=== PATIENT | female | born 1995 | race Hispanic/Latino ===

== ENCOUNTER 2018-01-20 16:12 | Emergency (ER) | payer MEDICAID, OTHER | END 2018-01-20 17:58 | disposition home or self-care (01) | LOC: EDH 16:12 | DX: F43.20 Adjustment disorder, unspecified (principal) ==

== ENCOUNTER 2018-09-13 14:00 | Emergency (ER) | payer MEDICAID | END 2018-09-13 16:27 | disposition home or self-care (01) | LOC: EDH 14:00 | DX: S89.92XA Unspecified injury of left lower leg, initial encounter (principal); R05 Cough; Z98.890 Other specified postprocedural states; Z72.0 Tobacco use; W18.39XA Other fall on same level, initial encounter; Y93.89 Activity, other specified; Y92.89 Other specified places as the place of occurrence of the external cause; Y99.8 Other external cause status | CPT/HCPCS: 29505; 73562; 73610 ==

== ENCOUNTER 2018-12-03 18:06 | Emergency (ER) | payer MEDICAID, OTHER ==
[2018-12-03] MEDS ORDERED: ACETAMINOPHEN EXTRA STRENGTH 500 MG TABLET ONE (18:21)
== END 2018-12-03 19:58 | disposition home or self-care (01) ==
LOC: EDH 18:06
DX: S83.8X2A Sprain of other specified parts of left knee, initial encounter (principal); F41.9 Anxiety disorder, unspecified; Z72.0 Tobacco use; W18.39XA Other fall on same level, initial encounter; Y93.01 Activity, walking, marching and hiking; Y92.89 Other specified places as the place of occurrence of the external cause; Y99.8 Other external cause status
CPT/HCPCS: 29505; 73562

== ENCOUNTER 2020-04-21 18:04 | Emergency (ER) | payer OTHER ==
[2020-04-21 18:36] LABS: APPEARANCE,URINE Cloudy (CLEAR); BILIRUBIN,URINE Negative (NEGATIVE); COLOR,URINE Yellow (YELLOW); GLUCOSE, URINE (UA) Negative (NEGATIVE); KETONES,URINE Negative (NEGATIVE); LEUKOCYTE ESTERASE ,URINE Large (NEGATIVE); NITRATE,URINE Negative (NEGATIVE); OCCULT BLOOD,URINE Negative (NEGATIVE); PROTEIN,URINE Negative (NEGATIVE)
[2020-04-21 18:38] LABS: HCG,QUAL RESULT NEGATIVE (NEGATIVE)
[2020-04-21 18:53] LABS: BACTERIA,URINE Moderate /HPF (None Seen); MUCUS,URINE Few LPF (None Seen); SQUAMOUS EPITHELIAL CELL,UR Moderate /HPF (0-2); TRICHOMONAS,URINE Moderate /LPF (None Seen)
== END 2020-04-21 20:45 | disposition left against medical advice (07) ==
LOC: EDH 18:04
DX: N93.8 Other specified abnormal uterine and vaginal bleeding (principal); N39.0 Urinary tract infection, site not specified; A59.9 Trichomoniasis, unspecified; F41.9 Anxiety disorder, unspecified; Z98.890 Other specified postprocedural states
CPT/HCPCS: 81001; 81025; 87077; 87088; 87186; 87486; 87797

== ENCOUNTER 2021-02-01 14:05 | Emergency (ER) | payer OTHER ==
[2021-02-01] MEDS ORDERED: ACETAMINOPHEN-CODEINE 300/30MG TAB ONE (14:24)
== END 2021-02-01 15:12 | disposition home or self-care (01) ==
LOC: EDH 14:05
DX: M54.5 Low back pain (principal); F41.9 Anxiety disorder, unspecified; Z98.890 Other specified postprocedural states
CPT/HCPCS: 72100

== ENCOUNTER 2024-10-22 11:37 | Emergency (ER) | payer SELFPAY ==
[~2024-10-22] VITALS: Ht 157.5 cm; Wt 83.0 kg
--- NOTE | 2024-10-22 11:57 | ERN ---
General Chief Complaint: Back Pain-No Injury Stated Complaint: BACK PAIN Time Seen by MD: 11:40 History of Present Illness Initial Comments Patient comes in with complaint of right low back pain for last three days. She woke up with it three days ago. The night before she had drank. However he does not recall any trauma and denies any falls. However she believes that she slept wrong afterwards. She woke up feeling pain in the right lower side without numbness. No dysuria. Last menses was about two and half weeks ago. It is worse with movement. She did take a medicine from [place] three days ago with some transient improvement. She has not taken any medicines today. Comes in for evaluation no no rash. No perineal symptoms. No radiation. No paresthesias. Allergies: Coded Allergies: No Known Allergies (Unverified Allergy, Unknown, 02/28/15) Home Meds No Active Prescriptions or Reported Meds Past Medical History Past Medical History: No Pertinent History Past Surgical History: ROS Dictation Ten systems reviewed and negative except as noted in HPI Physical Exam Physical Exam Dictation GEN: non toxic, NAD HEENT: atrumatic, PERRL, EOMI, conjunctivae normal NECK: Soft supple nontender Heart RRR, no murmurs Chest: No deformity Lungs: Lungs clear to auscultation Ab: Soft nondistended nontender Back: No midline step-offs. No gross deformity. No CVA tenderness : m/s: Moving all four extremities. No gross deformity. Reflexes 2+ at the knees and symmetric. Neuro: CN 2-12 intact. Moving all four extremities. Psych: Cooperative Results Laboratory and Microbiology Lab and Micro Result Laboratory Tests Test 10/22/24 11:45 Urine Color LIGHT-YELLOW (YELLOW) Urine Appearance CLOUDY (CLEAR) H Urine pH 6.0 (5.0-8.0) Urine Specific [place] 1.027 (1.001-1.031) Urine Protein 10 mg/dL (NEGATIVE) H Urine Glucose (UA) NEGATIVE mg/dL (NEGATIVE) Urine Ketones NEGATIVE mg/dL (NEGATIVE) Urine Occult Blood NEGATIVE (NEGATIVE) Urine Nitrate NEGATIVE (NEGATIVE) Urine Bilirubin NEGATIVE mg/dL (NEGATIVE) Urine Urobilinogen 0.2 mg/dL (0.2-1.0) Urine Leukocyte Esterase 250 Veronique/uL (NEGATIVE) H Urine RBC 6-10 /HPF (0-1) H Urine WBC 11-25 /HPF (0-1) H Urine Squamous Epithelial Cells MANY /HPF (0-2) Urine Bacteria RARE /HPF (None Seen) Urine Other Casts 1 /LPF (None Seen) Urine HCG, Qualitative NEGATIVE (NEGATIVE) MDM We will check urine and urine preg. However does appear to be musculoskeletal in nature. , year. We will treat symptomatically. No red carballo signs or symptoms. Urine is a bit contaminated. Patient has no urinary symptoms. Treat with Motrin and Flexeril ED Course Orders Procedure Category Date Status Time Urinalysis LAB 10/22/24 Complete W/Microscopic 11:53 ,Urine Test LAB 10/22/24 Complete 11:53 Acetaminophen 500mg PHA 10/22/24 Complete Tab (Tylenol 500mg T 12:00 Culture Urine NOY 10/22/24 In Process 12:16 Current Medications Medications (Trade) Dose Ordered Sig/Uvaldo Route PRN Reason Start Time Stop Time Status Last Admin Dose Admin Acetaminophen (TYLenol 500MG TAB) 1,000 mg ONCE ONCE PO 10/22/24 12:00 10/22/24 12:01 DC 10/22/24 12:50 Vital Signs Date Time Temp Pulse Resp B/P (MAP) Pulse Ox O2 Delivery O2 Flow Rate FiO2 10/22/24 12:43 97.3 76 18 126/60 99 Room Air* 0 21 10/22/24 11:45 98.1 95 16 129/74 98 Room Air* 0 21 10/22/24 11:38 98.1 95 16 129/74 98 Room Air 0 DX & DISP Disposition: Discharge Departure Impression: Primary Impression: Low back pain Condition: Stable Scripts Cyclobenzaprine HCl (Flexeril) 10 Mg Tab 1 TAB PO TID for muscle spasms for 7 Days, #21 TAB 0 Refills Prov: CHIRSTINE SUAREZ MD 10/22/24 Ibuprofen (Motrin/Advil) 600 Mg Tab 1 TAB PO TID for pain for 10 Days, #30 TAB 0 Refills with food Prov: CHRISTINE SUAREZ MD 10/22/24 Cyclobenzaprine HCl (Flexeril) 10 Mg Tab 10 TAB PO HS for muscle spasms for 7 Days, #21 TAB 0 Refills Prov: CHRISTINE SUAREZ MD 10/22/24 Referrals: SELF,REFERRAL (PCP) CHRISTINE SUAREZ MD Oct 22, 2024 11:57
[2024-10-22 12:13] LABS: HCG,QUALITATIVE URINE NEGATIVE (NEGATIVE)
[2024-10-22 12:14] LABS: APPEARANCE,URINE CLOUDY (CLEAR); BILIRUBIN,URINE NEGATIVE (NEGATIVE); COLOR,URINE LIGHT-YELLOW (YELLOW); GLUCOSE, URINE (UA) NEGATIVE (NEGATIVE); KETONES,URINE NEGATIVE (NEGATIVE); LEUKOCYTE ESTERASE ,URINE 250 Leu/uL (NEGATIVE); NITRATE,URINE NEGATIVE (NEGATIVE); OCCULT BLOOD,URINE NEGATIVE (NEGATIVE); PROTEIN,URINE 10 mg/dL (NEGATIVE); UROBILINOGEN,URINE 0.2 mg/dL (0.2-1.0)
[2024-10-22 12:17] LABS: BACTERIA,URINE RARE /HPF (None Seen); MUCUS,URINE RARE LPF (None Seen); OTHER CASTS, URINE 1 /LPF (None Seen); SQUAMOUS EPITHELIAL CELL,UR MANY /HPF (0-2)
[2024-10-22] MEDS: acetaMINOPHEN 500 MG TABLET PO ONE (12:50)
[2024-10-22] MEDS ORDERED: CYCL10TA16 PO ×2 (13:15)
[2024-10-22] MEDS ORDERED: IBUP-2088 PO (13:15)
[2024-10-22 13:19] VITALS: BP 124/63; PULSE 72; RESP 20; TEMP 97.1; O2SAT 97
== END 2024-10-22 13:24 | disposition home or self-care (01) ==
LOC: EDH 11:37
DX: M54.50 Low back pain, unspecified (principal); R10.31 Right lower quadrant pain
CPT/HCPCS: 81001; 81025; 87086; 99283

== ENCOUNTER 2024-12-08 12:08 | Emergency (ER) | payer SELFPAY ==
[~2024-12-08] VITALS: Ht 157.5 cm; Wt 81.6 kg
[~2024-12-08 12:08] MED LIST: CYCL10TA16 PO; IBUP-2088 PO
--- NOTE | 2024-12-08 12:56 | ERN ---
General Chief Complaint: Back Pain-No Injury Stated Complaint: BACK PAIN Time Seen by MD: 12:09 Source: patient History of Present Illness Initial Comments Patient is a 29-year-old female coming in with back pain. Patient does state that she has been having back pain for a couple of weeks was evaluated before but states she never got an x-ray so she was for further evaluation. No recent trauma. Allergies: Coded Allergies: No Known Allergies (Unverified Allergy, Unknown, 02/28/15) Home Meds Active Scripts Cyclobenzaprine HCl (Flexeril) 10 Mg Tab, 1 TAB PO TID for muscle spasms for 7 Days, #21 TAB 0 Refills Prov:CHRISTINE SUAREZ MD 10/22/24 Ibuprofen (Motrin/Advil) 600 Mg Tab, 1 TAB PO TID for pain for 10 Days, #30 TAB 0 Refills with food Prov:CHRISTINE SUAREZ MD 10/22/24 Cyclobenzaprine HCl (Flexeril) 10 Mg Tab, 10 TAB PO HS for muscle spasms for 7 Days, #21 TAB 0 Refills Prov:CHRISTINE SUAREZ MD 10/22/24 Past Medical History Past Medical History: No Pertinent History Past Surgical History: ROS Dictation CONSTITUTIONAL: No chills, no fever, no weakness, no diaphoresis, no malaise. HEAD/FACE: No signs of trauma. EENT: No eye pain, no blurred vision, no tearing, no double vision, no ear pain, no ear discharge, no nose pain, no nasal congestion, no throat pain, no throat swelling, no mouth pain. RESPIRATORY: No cough, no orthopnea, no SOB, no stridor, no wheezing. CARDIOVASCULAR: No chest pain, no edema, no palpitations, no syncope. GASTROINTESTINAL/ABDOMINAL: No abdominal pain, no constipation, no diarrhea, no nausea, no vomiting. GENITOURINARY: No abnormal discharge, no dysuria, no frequent urination, no hematuria. No complaints of pain in the genitals. MUSCULOSKELETAL: No back pain, no gout, no joint pain, no joint swelling, no muscle pain, no muscle stiffness, no neck pain. INTEGUMENTARY: No change in color, no change in hair/nails, no dryness, no lesion, no lumps, no rash. NEUROLOGICAL/PSYCH: No anxiety, not depressed, no emotional problem, no headache, no numbness, no pre-existing deficit, no history of seizures, no tremors, no weakness. HEMATOLOGIC/LYMPHATIC: Not anemic, no history of blood clots, no apparent bleeding, no bruising, glands not swollen. All Systems Negative, Except as Noted. Physical Exam Physical Exam Dictation VITAL SIGNS: Reviewed. GENERAL APPEARANCE: Alert, oriented x3, no acute distress, obese. HEAD AND FACE: Non-traumatic. EYES: PERRL, pink conjunctivas, eyelid no trauma, anterior chamber clear. EARS: Pinnas intact and no signs of trauma or erythema. Ear canals clear and no discharge. TMs no erythema. NOSE: No discharge, no bleeding. OROPHARYNX: Mouth normal, teeth no caries, tongue pink. Pharynx clear, no erythema. Tonsils no exudates, no abscesses noted. Mucous membrane moist. NECK: Supple, non-tender, no thyromegaly, no masses, no JVD, no bruits. BREAST: Deferred. CHEST: No tenderness, no crepitus, no paradoxical movement, no retractions. LUNGS: Clear, well-ventilated, symmetric, no rales, no wheezing, no rhonchi, no stridor, good breath sounds bilaterally. HEART: Regular rate, regular rhythm, no murmur, no gallops. VASCULAR: No peripheral edema. ABDOMEN: Soft, positive bowel sounds, nondistended, no guarding, nontender, no rebound, no masses no hepatomegaly, no splenomegaly, no Moses's sign, no hernias. RECTAL: Deferred. GENITAL: Deferred. NEUROLOGICAL: Normal speech, gross motor function intact, gross sensory function intact. MUSCULOSKELETAL: Neck nontender, full range of motion, back nontender, full range of motion. EXTREMITIES: Nontender, full range of motion. SKIN: Color pink, dry, no turgor, no rash, no lacerations, no abrasions, no contusions. LYMPHATICS: Deferred. Results Laboratory and Microbiology Lab and Micro Result Laboratory Tests Test 12/08/24 12:48 Urine HCG, Qualitative NEGATIVE (NEGATIVE) Urine Opiates Screen NEGATIVE (NEGATIVE) Urine Barbiturates Screen NEGATIVE (NEGATIVE) Urine Phencyclidine Screen NEGATIVE (NEGATIVE) Urine Amphetamines Screen NEGATIVE (NEGATIVE) Urine Benzodiazepines Screen POSITIVE (NEGATIVE) H Urine Cocaine Screen POSITIVE (NEGATIVE) H Urine Marijuana (THC) Screen POSITIVE (NEGATIVE) H Labs Reviewed?: Yes EKG/XRAY/US/CT/MRI X-RAY Comment [facility] [address] [place] [address] IMAGING REPORT Signed PATIENT: REYNA PADILLA MR#: [id number] : 1995 SEX: F AGE: 29 LOCATION: [facility] ORDER 1313 STATUS: REG ER REPORT#: [id number] SERVICE 1311 REASON: back pain ORDERING PHYSICIAN: DELMER TORRES MD PROCEDURE: LUMB 2 3VW - LUMBAR SPINE 2-3VWS LUMBAR SPINE RADIOGRAPHS - 2-3 VIEWS INDICATION: Back pain COMPARISON: None FINDINGS: AP, lateral, and coned-down lateral views. Normal lordotic curvature of the lumbar spine is maintained. Five nonrib-bearing lumbar vertebral bodies are noted. No acute fracture or subluxation identified. Vertebral body heights are well-maintained. Moderate disc height loss at the L5-S1 level.. IMPRESSION: No fracture or subluxation identified. DICTATED BY: BUDDY DAVIS MD DATE: 12/08/241412 ELECTRONICALLY SIGNED BY: BUDDY DAVIS MD DATE: 12/08/241415 [facility] MDM: Differential diagnosis: Back pain, osteoarthritis of the back, Patient is a 29-year-old female coming in to be evaluated for back pain. X-ray did not disclose acute findings. Based on physical findings patient has a right lower back radiating down the right gluteal regions suggestive of piriformis secondary to it is a sciatic nerve inflammation. Patient will be discharged in stable condition when I advised her appropriate follow up with PCP and learning specialist. ED Course Orders Procedure Category Date Status Time ,Urine Test LAB 12/08/24 Complete 12:22 Drug Screen Urine LAB 12/08/24 Complete 12:22 Orphenadrine Citrate PHA 12/08/24 Complete (Norflex) 13:30 Lumbar Spine 2-3vws RAD 12/08/24 Resulted 13:11 Current Medications Medications (Trade) Dose Ordered Sig/Uvaldo Route PRN Reason Start Time Stop Time Status Last Admin Dose Admin Orphenadrine Citrate (Norflex) 60 mg ONCE ONCE IM 12/08/24 13:30 12/08/24 13:31 DC 12/08/24 13:51 Vital Signs Date Time Temp Pulse Resp B/P (MAP) Pulse Ox O2 Delivery O2 Flow Rate FiO2 12/08/24 13:38 98.4 101 16 127/84 98 Room Air* 0 21 12/08/24 12:12 98.4 101 16 127/84 98 Room Air 0 DX & DISP Disposition: Discharge Departure Impression: Primary Impression: Chronic back pain Additional Impression: Polysubstance abuse Condition: Stable Scripts Naproxen (Naproxen) 500 Mg Tablet 1 TAB PO BID for pain for 7 Days, #14 TAB 0 Refills Prov: DELMER TORRES MD 12/08/24 Additional Instructions: FOLLOW-UP WITH PRIMARY CARE PROVIDER IN 1 TO 2 DAYS. TAKE MEDICATIONS DIRECTED HERE IN THE EMERGENCY ROOM. OKAY TO CONTINUE HOME MEDICATIONS UNLESS OTHERWISE DISCUSSED DURING YOUR VISIT IN THE EMERGENCY ROOM TODAY. RETURN TO YOUR NEAREST EMERGENCY ROOM IF SYMPTOMS WORSEN OR IF THERE IS NO IMPROVEMENT. CALL 911 IF YOU NEED IMMEDIATE ASSISTANCE. TAKE TYLENOL [id number] NEEDED AND IF NO CONTRAINDICATIONS ARE PRESENT. INCREASE ORAL HYDRATION. A WOUND CULTURE OR URINE CULTURE WAS ORDERED HERE IN THE EMERGENCY ROOM DEPARTMENT PLEASE FOLLOW-UP WITH PRIMARY CARE PROVIDER AND ADVISE THEM TO GET REPEAT PORTS FROM OUR FACILITY. IF YOU HAD ANY HAN WRAP/SPLINTS THAT WERE APPLIED HERE, PLEASE DO NOT REMOVE THEM UNTIL YOU SEE YOUR PRIMARY CARE OR SPECIALTY. Referrals: Referrals: SELF,REFERRAL (PCP) SANDY BRITO MD, LUIS A MD Time of Disposition: 14:21 DELMER TORRES MD Dec 08, 2024 12:55
[2024-12-08 13:05] LABS: HCG,QUALITATIVE URINE NEGATIVE (NEGATIVE)
[2024-12-08 13:08] LABS: AMPHET/METH SCREEN,URINE NEGATIVE (NEGATIVE); BARBITURATE SCREEN, URINE NEGATIVE (NEGATIVE); BENZODIAZEPINES SCREEN,URINE POSITIVE (NEGATIVE); CANNABINOID SCREEN,URINE POSITIVE (NEGATIVE); COCAINE SCREEN,URINE POSITIVE (NEGATIVE); OPIATE SCREEN,URINE NEGATIVE (NEGATIVE); PHENCYCLIDINE SCREEN,URINE NEGATIVE (NEGATIVE)
[2024-12-08 13:38] VITALS: BP 127/84; PULSE 101; RESP 16; TEMP 98.5; O2SAT 98
[2024-12-08] MEDS: ORPHENADRINE 60MG/2ML IM ONE (13:51)
--- NOTE | 2024-12-08 14:16 | HMCIMG ---
LUMBAR SPINE RADIOGRAPHS - 2-3 VIEWS INDICATION: Back pain COMPARISON: None FINDINGS: AP, lateral, and coned-down lateral views. Normal lordotic curvature of the lumbar spine is maintained. Five nonrib-bearing lumbar vertebral bodies are noted. No acute fracture or subluxation identified. Vertebral body heights are well-maintained. Moderate disc height loss at the L5-S1 level.. IMPRESSION: No fracture or subluxation identified.
[2024-12-08] MEDS ORDERED: NAPR-1194 PO (14:22)
== END 2024-12-08 15:07 | disposition home or self-care (01) ==
LOC: EDH 12:08
DX: G89.29 Other chronic pain (principal); M54.50 Low back pain, unspecified; F19.10 Other psychoactive substance abuse, uncomplicated; Z79.1 Long term (current) use of non-steroidal anti-inflammatories (NSAID)
CPT/HCPCS: 72100; 80305; 81025; 96372; 99284; J2360

== ENCOUNTER 2025-06-26 19:55 | Emergency (ER) | payer SELFPAY ==
[~2025-06-26] VITALS: Ht 157.5 cm; Wt 108.9 kg
[~2025-06-26 19:55] MED LIST changes: -IBUP-2088 PO; +IBUP-2829 PO; +NAPR-1194 PO
[2025-06-26 20:54] LABS: IMMATURE GRANULOCYTE ABSOLUTE 0.02 K/uL (0-1); NUCLEATED RED BLOOD CELLS 0.0 % (0.0-0.19); PLATELET COUNT (AUTO) 297 K/uL (130-400); RED BLOOD CELL COUNT(AUTO) 3.98 MIL/uL (4.00-5.50); RED CELL DISTRIBUTION WIDTH 15.8 % (11.0-15.5); WHITE BLOOD COUNT (AUTO) 9.1 K/uL (4.8-10.8)
[2025-06-26 21:10] LABS: CREATININE 0.7 mg/dL (0.5-1.0); GLOMERULAR FILTR. RATE CALC 121.0 mL/min (>90); GLUCOSE,RANDOM 90.0 mg/dL (70-105); SODIUM SERUM 144.0 mmol/L (136-145); UREA NITROGEN, BLOOD 8.0 mg/dL (7-18)
[2025-06-26 21:14] LABS: ASPARTATE AMINOTRANSFERASE 25.0 U/L (10-37); TOTAL PROTEIN, SERUM 5.9 g/dL (6.0-8.3)
--- NOTE | 2025-06-26 21:32 | HMCIMG ---
EXAM: US for Deep Venous Thrombosis, bilateral Lower Extremity. CLINICAL HISTORY: Leg Pain and Swelling. TECHNIQUE: Real-time ultrasound scan of the veins of the bilateral lower extremity with color Doppler flow, spectral waveform analysis, and compression. COMPARISON: None provided. FINDINGS: DEEP VEINS: The common femoral, superficial femoral, and popliteal veins are echolucent and compressible. There is normal color Doppler flow throughout. The visualized calf veins appear patent. SOFT TISSUES: No popliteal fossa cyst or other abnormalities. IMPRESSION: No deep venous thrombosis is evident on bilateral lower extremity examination. /[place]
--- NOTE | 2025-06-26 22:39 | ERN ---
ED Note History of Present Illness Stated Complaint: BILATEREAL ANKLE EDEMA Chief Complaint: LOWER EXTREMITY EDEMA Time Seen by MD: 20:04 Time Seen by Midlevel: 20:04 Dictation: Patient is a 29-year-old female with no past medical history presents to the emergency department with complaints of bilateral lower extremity edema onset today. Patient denies any trauma. Denies any fevers. Denies any recent illness. Denies any recent travel. Denies any recent surgeries. Denies any use of control. Patient denies any chest pain or shortness of breath. Allergies: Coded Allergies: No Known Allergies (Unverified Allergy, Unknown, 02/28/15) Home Meds Active Scripts Naproxen (Naproxen) 500 Mg Tablet, 1 TAB PO BID for pain for 7 Days, #14 TAB 0 Refills Prov:DELMER TORRES MD 12/08/24 Cyclobenzaprine HCl (Flexeril) 10 Mg Tab, 1 TAB PO TID for muscle spasms for 7 Days, #21 TAB 0 Refills Prov:CHRISTINE SUAREZ MD 10/22/24 Ibuprofen (Motrin/Advil) 600 Mg Tab, 1 TAB PO TID for pain for 10 Days, #30 TAB 0 Refills with food Prov:CHRISTINE SUAREZ MD 10/22/24 Cyclobenzaprine HCl (Flexeril) 10 Mg Tab, 10 TAB PO HS for muscle spasms for 7 Days, #21 TAB 0 Refills Prov:CHRISTINE SUAREZ MD 10/22/24 Past Medical History Past Medical History: No Pertinent History Surgical History: LMP: Jun 22, 2025 RN Note Reviewed/Agreed w/PFSH: Yes Review of System Dictation Constitutional: Negative for fever,chills, and weight loss Eyes: Negative for injury, pain,redness, and discharge ENT: Negative for injury,pain or swelling Cardiovascular: Negative for chest pain, palpitations positive for lower extremity edema Respiratory: Negative for shortness of breath, cough, and wheezing, Abdomen/GI: Negative for abdominal pain, nausea, vomiting, diarrhea, and constipation Back: Negative for injury and pain : Negative for injury, bleeding and discharge MS/Extremity: Negative for injury and deformity Skin: Negative for rash, and discoloration Neuro: Negative for headache, weakness, numbness, tingling, and seizure Psych: Negative for suicide ideation, homicidal ideation, and hallucinations Initial Vital Sign VS Vital Signs Date Time Temp Pulse Resp B/P (MAP) Pulse Ox O2 Delivery O2 Flow Rate FiO2 06/26/25 19:57 98.2 114 20 137/90 98 Room Air 06/26/25 20:00 0 21 Physical Exam Dictation Vital Signs reviewed General Appearance: Alert, oriented x 3, no acute distress, well developed, nourished. Head and Face: non-traumatic. Eyes: PERRL, pink conjunctivas, eyelid no trauma, anterior chamber with arcus senilis. Ears: Pinnas intact and no signs of trauma or erythema ear canals clear and no discharge TM no erythema Nose: No discharge, no bleeding. Oropharynx: Mouth normal, tongue pink. pharynx clear,no erythema, tonsils no exudates, no abscesses noted, mucous membrane moist Neck: Supple, non-tender, no thyromegaly, no masses, no JVD, no bruits Breast:Deferred Chest:No tenderness, no crepitus, no paradoxical movement, no retractions Lungs:Clear, well-ventilated, symmetric, no rales, no wheezing, no rhonchi, no stridor, good breath sounds bilaterally Heart: Regular rate, regular rhythm, no murmur, no gallops Vascular: Nonpitting lower edema to bilateral extremities Abdomen: Soft, positive bowel sounds, nondistended, no guarding, nontender, no rebound, no masses no hepatomegaly, no splenomegaly, no Moses's sign, no hernias. Rectal: Deferred Genital: Deferred Neurological: Normal speech, motor function intact, sensory function intact Musculoskeletal: Neck nontender, full range of motion, back nontender, full range of motion, Extremities: nontender, full range of motion Skin: Color pink, dry, no turgor, no rash, no lacerations, no abrasions, no contusions. Lymphatic: Deferred Results (Laboratory/Radiology) Laboratory/Radiology Laboratory Tests Test 06/26/25 20:46 White Blood Count 9.1 K/uL (4.8-10.8) Red Blood Count 3.98 MIL/uL (4.00-5.50) L Hemoglobin 11.9 g/dL (12.0-16.0) L Hematocrit 37.2 % (36-48) Mean Corpuscular Volume 93.5 fL (79-99) Mean Corpuscular Hemoglobin 29.9 pg (27.0-33.0) Mean Corpuscular Hemoglobin Concent 32.0 g/dL (32.0-36.0) Red Cell Distribution Width 15.8 % (11.0-15.5) H Platelet Count 297 K/uL (130-400) Mean Platelet Volume 10.7 fL (7.5-10.5) H Immature Granulocyte % (Auto) 0.2 % (0-1) Neutrophils (%) (Auto) 68.9 % (40.0-77.0) Lymphocytes (%) (Auto) 22.5 % (21.0-51.0) Monocytes (%) (Auto) 5.5 % (3.0-13.0) Eosinophils (%) (Auto) 2.5 % (0.0-8.0) Basophils (%) (Auto) 0.4 % (0.0-5.0) Neutrophils # (Auto) 6.3 K/uL (1.8-7.7) Lymphocytes # (Auto) 2.1 K/uL (1.0-4.8) Monocytes # (Auto) 0.5 K/uL (0.1-1.0) Eosinophils # (Auto) 0.23 K/uL (0.00-0.70) Basophils # (Auto) 0.04 K/uL (0.00-0.20) Absolute Immature Granulocyte (auto 0.02 K/uL (0-1) Nucleated Red Blood Cells 0.0 % (0.0-0.19) Sodium Level 144 mmol/L (136-145) Potassium Level 4.4 mmol/L (3.5-5.1) Chloride Level 108 mmol/L (101-111) Carbon Dioxide Level 30 mmol/L (21-32) Blood Urea Nitrogen 8 mg/dL (7-18) Creatinine 0.7 mg/dL (0.5-1.0) Glomerular Filtration Rate Calc 121 mL/min (>90) Random Glucose 90 mg/dL (70-105) Total Calcium 8.4 mg/dL (8.5-10.1) L Total Bilirubin 0.2 mg/dL (0.2-1.0) Aspartate Amino Transf (AST/SGOT) 25 U/L (10-37) Alanine Aminotransferase (ALT/SGPT) 27 U/L (12-78) Alkaline Phosphatase 97 U/L (50-136) B-Type Natriuretic Peptide 10 pg/mL (0-100) Total Protein 5.9 g/dL (6.0-8.3) L Albumin 2.5 g/dL (3.5-5.0) L Serum Test, Qualitative NEGATIVE (NEGATIVE) REASON: swelling pain ORDERING PHYSICIAN: KEELEY ADRIAN PROCEDURE: VENOUS JULIET - US VENOUS DOPPLER BILATERAL EXAM: US for Deep Venous Thrombosis, bilateral Lower Extremity. CLINICAL HISTORY: Leg Pain and Swelling. TECHNIQUE: Real-time ultrasound scan of the veins of the bilateral lower extremity with color Doppler flow, spectral waveform analysis, and compression. COMPARISON: None provided. FINDINGS: DEEP VEINS: The common femoral, superficial femoral, and popliteal veins are echolucent and compressible. There is normal color Doppler flow throughout. The visualized calf veins appear patent. SOFT TISSUES: No popliteal fossa cyst or other abnormalities. IMPRESSION: No deep venous thrombosis is evident on bilateral lower extremity examination. /[facility] Labs Reviewed?: Yes ED Course ED Course Orders Procedure Category Date Status Time Cbc With Differential LAB 06/26/25 Complete 20:12 Comprehensive LAB 06/26/25 Complete Metabolic Panel 20:12 Testing, LAB 06/26/25 Complete Serum Hcg 20:12 Us Venous Doppler US 06/26/25 Resulted Bilateral 20:12 B-Type Natriuretic LAB 06/26/25 Complete Peptide 20:12 Vital Signs Date Time Temp Pulse Resp B/P (MAP) Pulse Ox O2 Delivery O2 Flow Rate FiO2 06/26/25 21:44 98.2 95 21 111/66 99 Room Air* 0 06/26/25 20:00 98.2 102 15 104/70 98 Room Air* 0 21 06/26/25 19:57 98.2 114 20 137/90 98 Room Air Medical Decision Making MDM Patient is a 29-year-old female with no past medical history presents to the emergency department with complaints of bilateral lower extremity edema onset today. Patient denies any trauma. Denies any fevers. Denies any recent illness. Denies any recent travel. Denies any recent surgeries. Denies any use of control. Patient denies any chest pain or shortness of breath. CBC showed no leukocytosis, mild normocytic anemia, chemistry showed no electrolyte imbalance, normal renal function, normal liver enzymes. Ultrasound revealed no evidence of DVT. On physical exam patient is in no acute distress, nontoxic appearance, stable vital signs. Patient with nonpitting edema to bilateral extremities, no erythema or open wounds noted patient will be discharged to follow up with PCP. Differential diagnosis: DVT, venous insufficiency, nephrotic syndrome Need for hospitalization: Patient does not meet criteria for hospitalization. There are no social concerns with this patient. DX & DISP Disposition: Discharge Departure Impression: Primary Impression: Lower extremity edema Additional Impression: Venous stasis Condition: Stable Additional Instructions: Your labs were unremarkable. Your ultrasound did not show any evidence of blood clots. Please elevate your legs to help with the swelling. Follow up with your primary doctor in 1-2 days. If anything worsens please return to ER. FOLLOW-UP WITH PRIMARY CARE PROVIDER IN 1 TO 2 DAYS. TAKE MEDICATIONS DIRECTED HERE IN THE EMERGENCY ROOM. OKAY TO CONTINUE HOME MEDICATIONS UNLESS OTHERWISE DISCUSSED DURING YOUR VISIT IN THE EMERGENCY ROOM TODAY. RETURN TO YOUR NEAREST EMERGENCY ROOM IF SYMPTOMS WORSEN OR IF THERE IS NO IMPROVEMENT. CALL 911 IF YOU NEED IMMEDIATE ASSISTANCE. TAKE TYLENOL [id number] NEEDED AND IF NO CONTRAINDICATIONS ARE PRESENT. INCREASE ORAL HYDRATION. A WOUND CULTURE OR URINE CULTURE WAS ORDERED HERE IN THE EMERGENCY ROOM DEPARTMENT PLEASE FOLLOW-UP WITH PRIMARY CARE PROVIDER AND ADVISE THEM TO GET REPEAT PORTS FROM OUR FACILITY. IF YOU HAD ANY HAN WRAP/SPLINTS THAT WERE APPLIED HERE, PLEASE DO NOT REMOVE THEM UNTIL YOU SEE YOUR PRIMARY CARE OR SPECIALTY. Referrals: SELF,REFERRAL (PCP) Time of Disposition: 22:43 I have reviewed the case, and I agree with, Diagnosis and Plan KEELEY ADRIAN [facility] Jun 26, 2025 22:39
[2025-06-26 22:50] VITALS: BP 120/67; PULSE 87; RESP 20; TEMP 98.2; O2SAT 99
== END 2025-06-26 22:59 | disposition home or self-care (01) ==
LOC: EDH 19:55
DX: I87.8 Other specified disorders of veins (principal); M79.662 Pain in left lower leg; M79.661 Pain in right lower leg; Z79.1 Long term (current) use of non-steroidal anti-inflammatories (NSAID)
CPT/HCPCS: 36415; 80053; 83880; 84703; 85025; 93970; 99284